=== PATIENT | female | born 1990 | race Hispanic/Latino ===

== ENCOUNTER 2018-03-06 02:28 | Emergency (ER) | payer MEDICAID ==
[2018-03-06] MEDS ORDERED: KETOROLAC TROMETHAMINE 30MG/ML ONE (02:55)
== END 2018-03-06 03:25 | disposition home or self-care (01) ==
LOC: EDH 02:28
DX: M62.838 Other muscle spasm (principal); M54.5 Low back pain; M79.632 Pain in left forearm; M79.641 Pain in right hand; F32.9 Major depressive disorder, single episode, unspecified; G89.29 Other chronic pain; Z72.0 Tobacco use; Z98.890 Other specified postprocedural states
CPT/HCPCS: 96372; 99283; J1885

== ENCOUNTER 2018-03-19 12:40 | Emergency (ER) | payer MEDICAID ==
[2018-03-19] MEDS ORDERED: TETANUS/DIPHTHERIA TOXOID [ADULT] 0.5 ML VIAL IM ONE (13:15)
[2018-03-19] MEDS ORDERED: ACETAMINOPHEN EXTRA STRENGTH 500 MG TABLET ONE (14:25)
[2018-03-19] MEDS ORDERED: CEFAZOLIN SODIUM 1 GM VIAL ONE (15:02)
== END 2018-03-19 15:46 | disposition home or self-care (01) ==
LOC: EDH 12:40
DX: S92.531B Displaced fracture of distal phalanx of right lesser toe(s), initial encounter for open fracture (principal); F32.9 Major depressive disorder, single episode, unspecified; Z72.0 Tobacco use; Z98.890 Other specified postprocedural states; W22.09XA Striking against other stationary object, initial encounter; Y93.89 Activity, other specified; Y92.89 Other specified places as the place of occurrence of the external cause; Y99.8 Other external cause status
CPT/HCPCS: 73630; 90471; 90714; 96372; 99283; J0690